=== PATIENT | male | born 1990 | race Caucasian/White ===

== ENCOUNTER 2021-10-12 00:48 | Emergency (ER) | payer SELFPAY ==
[~2021-10-12 00:48] MED LIST: IBUPROFEN800 MG PO; NORCO 5-325 TA1 EACH PO
[2021-10-12 01:13] LABS: BASOPHIL 0.4 % (0-2); EOSINOPHIL 2.7 % (0-5); HCT 45.9 % (42.0-52.0); HGB 15.5 g/dl (13.2-18.0); LYMPHOCYTE 29.7 % (15-48); MCH 31.1 pg (25.0-31.0); MCHC 33.8 g/dL (32.0-36.0); MCV 92.2 fL (78.0-100.0); MONOCYTE 8.8 % (0-12); MPV 10.1 fL (6.0-9.5); NRBC 0; PLT 205 K/uL (150-400); RBC 4.98 M/uL (4.70-6.00); WBC 13.1 K/uL (4.0-10.5)
[2021-10-12 01:27] LABS: BUN 9 mg/dL (7-18); BUN/CREAT RATIO (CALC) 11.2 RATIO; CHLORIDE 107 mmol/L (98-107); CO2 (BICARBONATE) 29 mmol/L (21-32); GLUCOSE 114 mg/dL (74-106); POTASSIUM 4.2 mmol/L (3.5-5.1)
[2021-10-12 01:28] LABS: C-REACTIVE PROTEIN < 0.20 mg/dL (<=0.90)
[2021-10-12 01:48] LABS: CORONAVIRUS 2019 SARS-COV-2 NEGATIVE (NEGATIVE); INFLUENZA A NAA NEGATIVE (NEGATIVE)
[2021-10-12 02:22] LABS: INR 0.94 (0.9-1.2)
[2021-10-12] MEDS ORDERED: FIORICET1 EACH PO (04:19)
[2021-10-12] MEDS ORDERED: ONDANSETRON ODT4 MG SL (04:19)
== END 2021-10-12 04:30 | disposition home or self-care (01) ==
LOC: FER 00:48
PROVIDERS: Emergency Medicine Emergency Medical Services
DX: R51.9 Headache, unspecified (principal); F17.200 Nicotine dependence, unspecified, uncomplicated; Z20.822 Contact with and (suspected) exposure to COVID-19
CPT/HCPCS: 36415; 36600; 70450; 80048; 82803; 85025; 85610; 86140; J1100; J1885; J2405; J7030; U0002